=== PATIENT | male | born 1990 | race American Indian/Alaskan Native ===

== ENCOUNTER 2017-10-21 12:36 | Emergency (ER) | payer BC ==
[2017-10-21 12:45] VITALS: BP 129/71
[2017-10-21] MEDS ORDERED: MOTRIN PO ONE (14:17)
--- NOTE | 2017-10-21 14:19 | Emergency Department Report ---
- General Chief Complaint: Sore Throat Stated Complaint: SORE THROAT Time Seen by Provider: 10/21/17 14:14 Source: patient Mode of arrival: Ambulatory Limitations: No Limitations - History of Present Illness Initial Comments: 27-year-old -[place] male with no past medical history comes in for complaint of fever body aches cough for several days. Patient reports that his cell was recent diagnosis of flu B on Tuesday his symptoms started on Tuesday patient has not tried any zymv-qdz-[id number] medication. He does complain of sore throat. 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 He does report that the nasal congestion cough runny nose it's worse at night. MD Complaint: cough, sore throat, rhinorrhea, nasal congestion (worse at night) - Related Data Previous Rx's Medication Instructions Recorded Last Taken Type HYDROcodone/APAP 5-325 [[place] 1 each PO Q6HR PRN #10 tablet 08/24/15 Unknown Rx 5/325] Allergies Allergy/AdvReac Type Severity Reaction Status Date / Time No Known Allergies Allergy Verified 10/21/17 12:42 ED Review of Systems ROS: Stated complaint: SORE THROAT Other details as noted in HPI Constitutional: denies: chills, fever Eyes: denies: eye pain, eye discharge, vision change ENT: throat pain Respiratory: cough Cardiovascular: denies: chest pain, palpitations Endocrine: no symptoms reported Gastrointestinal: denies: abdominal pain, nausea, diarrhea Genitourinary: denies: urgency, dysuria Musculoskeletal: arthralgia (generalized body aches). denies: back pain, joint swelling Skin: denies: rash, lesions Neurological: as per HPI Psychiatric: denies: anxiety, depression Hematological/Lymphatic: denies: easy bleeding, easy bruising ED Past Medical Hx - Past Medical History Previous Medical History?: No - Surgical History Past Surgical History?: No - Social History Smoking Status: Current Every Day Smoker Substance Use Type: None - Medications Home Medications: Home Medications Medication Instructions Recorded Confirmed Last Taken Type HYDROcodone/APAP 5-325 [[place] 1 each PO Q6HR PRN #10 tablet 08/24/15 Unknown Rx 5/325] ED Physical Exam - General Limitations: No Limitations General appearance: alert, in no apparent distress - Head Head exam: Present: atraumatic, normocephalic - Eye Eye exam: Present: normal appearance - ENT ENT exam: Present: mucous membranes moist, TM's normal bilaterally - Expanded ENT Exam Expanded Throat exam: Positive: tonsillar erythema - Neck Neck exam: Present: normal inspection - Respiratory Respiratory exam: Present: normal lung sounds bilaterally. Absent: respiratory distress - Cardiovascular Cardiovascular Exam: Present: regular rate, normal rhythm. Absent: systolic murmur, diastolic murmur, rubs, gallop - GI/Abdominal GI/Abdominal exam: Present: soft, normal bowel sounds - Neurological Exam Neurological exam: Present: alert, oriented X3 ED Course Vital Signs 10/21/17 12:42 Temperature 98.1 F Pulse Rate 90 Respiratory 20 Rate Blood Pressure 129/71 O2 Sat by Pulse 99 Oximetry Critical care attestation.: If time is entered above; I have spent that time in minutes in the direct care of this critically ill patient, excluding procedure time. ED Disposition Clinical Impression: URI with cough and congestion Disposition: DC-01 TO HOME OR SELFCARE Is pt being admited?: No Does the pt Need Aspirin: No Condition: Stable Instructions: Analgesic/Antihistamine/Antitussive (By mouth) Additional Instructions: Drink plenty of fluids take [id number]-mhu-nempkbb cough medicine such as Delsym and Robitussin, can take kmbq-gff-kwubkgl Claritin or Anuradha. He can take over-the -counter Motrin or Tylenol for body aches and subjective fever. Follow-up with her primary care provider for further evaluation. Referrals: ASIA AHN MD [Staff Physician] - 3-5 Days Forms: Work/School Release Form(ED)
== END 2017-10-21 14:38 | disposition home or self-care (01) ==
LOC: ED 12:36
DX: J06.9 Acute upper respiratory infection, unspecified (principal); F17.200 Nicotine dependence, unspecified, uncomplicated
CPT/HCPCS: 99282